=== PATIENT | male | born 1940 | race Caucasian/White ===

== ENCOUNTER 2016-07-02 18:49 | Emergency (ER) | payer MEDICARE, BC ==
[~2016-07-02] VITALS: Ht 188 cm; Wt 113.8 kg
[~2016-07-02 18:49] MED LIST: ASPI-730 PO; PRIM50TA27 PO
--- OUTSIDE RECORDS SUMMARY | 2016-07-02 18:53 | XMS REPORT | Summary of Care ---
Author Author Ray Stewart M.D. 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 Name Role Phone Adeel Bonds II, PP Unavailable Unavailable Unavailable Functional Status Functional Status Health Issues* Name Dates Details Functional status health issues are not documented Status: Cognitive Status Health Issues* Name Dates Details Cognitive status health issues are not documented Status: Problems Name Dates Details Fibrous papule of nose (216.3, D22.39) Status: Active Lipoma of arm (214.8, D17.20) Status: Active Actinic keratosis (702.0, L57.0) Status: Active Seborrheic keratosis (702.19, L82.1) Status: Active Sebaceous hyperplasia (706.8, L73.8) Status: Active Benign neoplasm of skin of trunk, except scrotum (216.5, 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) Status: Active Elevated PSA (790.93, R97.2) Status: Active 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, 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 History of kidney stones (V13.01, Z87.442) Status: Active 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, 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, 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 Benign prostatic hypertrophy with lower urinary tract symptoms (LUTS) (600.01, N40.1) Status: Active Hydrocele, right (603.9, N43.3) Status: Active Medications Name Dates Details Primidone 50 MG Oral Tablet Quantity: 30 * Started 08-Feb-2007 ActiveAspirin EC 325 MG Oral Tablet Delayed Release * Refills: 0 ActiveFish Oil OIL * Refills: 0 Active Allergies and Adverse Reactions Name Dates Details No Known Drug Allergies Status: Active Past Medical History Name Dates Details 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, 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 History of basal cell carcinoma (V10.83, Z85.828) Status: Resolved History of hydrocele (V13.89, Z87.438) Status: Resolved 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, 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 History of skin cancer (V10.83, Z85.828) Status: Resolved History of Spermatocele (608.1, N43.40) Status: Resolved Procedures Procedure Dates Details History of Biopsy Of The Prostate Needle Procedures not documented Immunization Name Dates Details Immunizations not documented Family History Unknown Family Member* Name Dates Details Family history of Colon cancer (153.9, C18.9) Comments: Other Status: Active Mother* Name Dates Details Family history of malignant neoplasm of thyroid (V16.8, Z80.8) Status: Active Brother* Name Dates Details Family history of Melanoma (172.9, C43.9) Status: Active Social History Name Dates Details Smoking Status* Former smoker Vital Signs Date Test Result Details 09:40 BP Systolic 145 mm[Hg] Status: BP Diastolic 90 mm[Hg] Status: Heart Rate 60 /min Status: Height 74 in Status: Weight 243 lb Status: Body Mass Index Calculated 31.2 kg/m2 Status: Body Surface Area Calculated 2.36 m2 Status: Results Date Description Value Details Results not documented Plan of Care Planned Observations* Name Dates Details Planned Goals not documented Goal Planned Encounters* Appointment; Provider: Adán Jin On 08-Nov-2015 09:15 * Appointment; Provider: Adán Jin On 21-Oct-2007 10:30 Instructions * Instructions not documented Encounters Appointment; Ray Stewart Encounter Diagnosis: Problem not documented On 09:45 Appointment; Adán Jin Encounter Diagnosis: Problem not documented On 09-Nov-2014 09:15 Appointment; Adán Jin Encounter Diagnosis: Problem not documented On 10-Nov-2013 09:15
[2016-07-02 19:05] VITALS: Ht 188 cm; Wt 113.8 kg
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
[2016-07-02] MEDS ORDERED: ONDANSETRON ODT 4 MG TAB PO ONE (19:30)
[2016-07-02] MEDS ORDERED: HYDROCODONE/APAP 5 mg/325 mg TABLET PO ONE (19:30)
[2016-07-02] MEDS ORDERED: PRAV40TA3 PO (19:45)
[2016-07-02] MEDS ORDERED: VIT1CAPS4 PO (19:45)
[2016-07-02] MEDS ORDERED: FISH1CAP10 PO (19:45)
[2016-07-02] MEDS ORDERED: HYDROCODONE/APAP 5/325 (PrePack) SENT HOME ONE (21:00)
[2016-07-02 21:25] VITALS: BP 142/81; PULSE 61; RESP 16; TEMP 98.1; O2SAT 94
--- NOTE | 2016-07-03 07:51 | DI ---
Indication: ITS.REASON: FALL with right elbow pain PROCEDURE: ELBOW RIGHT 3 VIEW: Encounter: Initial Comparison: None Findings: There is no acute fracture, dislocation or malalignment identified. Impression: No acute osseous abnormality. .
--- NOTE | 2016-07-03 07:54 | DI ---
Indication: ITS.REASON: fall with right arm pain PROCEDURE: HUMERUS RIGHT 2 VIEW: Encounter: Initial Comparison: None Findings: There are subtle nondisplaced fracture of the right third and fourth posterior ribs. No additional acute fracture or dislocation. Impression: Nondisplaced right upper rib fractures. .
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
--- NOTE | 2016-07-03 07:56 | DI ---
Indication: ITS.REASON: Fall PROCEDURE: CHEST 1 VIEW: Encounter: Initial Comparison: None FINDINGS: Minimal atelectasis in the right base. The lungs are otherwise clear. There is no pleural effusion or pneumothorax identified. The heart size, pulmonary vasculature and mediastinum are within normal limits. Tortuous thoracic aorta. IMPRESSION: No acute cardiopulmonary abnormality. .
== END 2016-07-02 21:25 | disposition home or self-care (01) ==
LOC: ED 18:49
DX: M25.511 Pain in right shoulder (principal); M25.521 Pain in right elbow; M79.631 Pain in right forearm; M79.621 Pain in right upper arm; R07.1 Chest pain on breathing; V18.0XXA Pedal cycle driver injured in noncollision transport accident in nontraffic accident, initial encounter; Y93.55 Activity, bike riding; Y92.009 Unspecified place in unspecified non-institutional (private) residence as the place of occurrence of the external cause; Y99.8 Other external cause status
CPT/HCPCS: 71010; 73030; 73060; 73080; 99283; A9270